=== PATIENT | female | born 1970 | race Caucasian/White ===

== ENCOUNTER 2017-01-07 18:48 | Emergency (ER) | payer OTHER ==
[2017-01-07] MEDS ORDERED: Morphine 2 MG/ML Syringe IVPUSH ONE (18:49)
[2017-01-07] MEDS ORDERED: Ondansetron 4 MG/2 ML SDV IVPUSH ONE (18:49)
[2017-01-07] MEDS ORDERED: Ketorolac 30 MG/ML SDV IVPUSH ONE (18:49)
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
[2017-01-07] MEDS ORDERED: Morphine 4 MG/ML Syringe IVPUSH ONE (19:43)
[2017-01-07] MEDS ORDERED: Sodium Chloride 0.9% 1,000 ML IV SCH (21:15)
[2017-01-07] MEDS ORDERED: Iopamidol 755 Mg/ML 100 ML Bottle IVPUSH STA (22:56)
[2017-01-07 23:13] VITALS: BP 152/92
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
--- NOTE | 2017-01-08 10:21 | CR ---
EXAM DATE: 01/07/17 PATIENT'S AGE: 46 Patient: ANALIA FONSECA Facility: [place], [place] Site . Site : 1970 Study: XRay Chest [id number]/28/2017 9:13:05 PM Ordering Physician: Doctor Sanchez Final Report: INDICATION: pain TECHNIQUE: Chest 2 views COMPARISON: January 07, 2017. January 25, 2015. FINDINGS: Cardiovascular and mediastinum: Heart size and vasculature are normal in caliber and appearance. Mediastinum is within normal limits. On the prior examination the mediastinum was accentuated secondary to supine positioning. Lungs and pleural spaces: No focal consolidation. Stable nodular density within the left upper lobe. No sign of pleural effusion. No pneumothorax. Bones and soft tissues: Degenerative changes. IMPRESSION: No acute cardiopulmonary disease. Stable nodular density within the left upper lobe. Dictated by Vicente Delaney MD @ 01/07/2017 9:50:21 PM Dictated by: Vicente Delaney MD @ 01/07/2017 21:50:46 (Electronic Signature) Report Signed by Proxy. [facility]
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
== END 2017-01-08 00:46 | disposition home or self-care (01) ==
LOC: MW.ED 18:48
DX: S00.83XA Contusion of other part of head, initial encounter (principal); T07.XXXA Unspecified multiple injuries, initial encounter; M25.512 Pain in left shoulder; R93.8 Abnormal findings on diagnostic imaging of other specified body structures; V43.52XA Car driver injured in collision with other type car in traffic accident, initial encounter
CPT/HCPCS: 36415; 70450; 71010; 71020; 71260; 72125; 73030; 73610; 73620; 74177; 80053; 81001; 85025; 96361; 96374; 96375; 99285; G0390; J2270; J2405; J7040; Q9967

== ENCOUNTER 2023-01-31 08:44 | Day surgery (SDC) | payer OTHER ==
[~2023-01-31 08:44] MED LIST: Lactated Ringers 1,000 ML IV SCH
[2023-01-31] MEDS ORDERED: propofoL 50 ML ONE (09:45)
[2023-01-31] MEDS ORDERED: dexmedeTOMIDine HCl 200 MCG/2 ML SDV ONE (09:45)
[2023-01-31] MEDS ORDERED: Propofol 200 MG/20 ML SDV ONE ×2 (10:21→10:38)
[2023-01-31 13:06] VITALS: BP 123/69; PULSE 65
== END 2023-01-31 11:30 | disposition home or self-care (01) ==
LOC: MW.SDS 08:44
PROVIDERS: ATTEND Surgery
DX: Z12.11 Encounter for screening for malignant neoplasm of colon (principal); K29.50 Unspecified chronic gastritis without bleeding; K21.00 Gastro-esophageal reflux disease with esophagitis, without bleeding; K31.89 Other diseases of stomach and duodenum; K51.90 Ulcerative colitis, unspecified, without complications; K44.9 Diaphragmatic hernia without obstruction or gangrene; I10 Essential (primary) hypertension; E66.9 Obesity, unspecified; Z68.41 Body mass index [BMI] 40.0-44.9, adult; Z79.899 Other long term (current) drug therapy; Z91.048 Other nonmedicinal substance allergy status
CPT/HCPCS: 43239; 45380; J2704; J7120; 00813; J3490